=== PATIENT | female | born 1980 | race Caucasian/White ===

== ENCOUNTER 2020-02-23 09:19 | Emergency (ER) | payer OTHER ==
[~2020-02-23] VITALS: Ht 157.5 cm; Wt 99.8 kg
[~2020-02-23 09:19] MED LIST: CYMBALTA20 MG; CYMBALTA20 MG PO; LORAZEPAM0.5 MG PO; PRAZOSIN HCL2 MG PO; PROTONIX20 MG; SYNTHROID75 MCG PO; ZOLOFT100 MG PO
--- OUTSIDE RECORDS SUMMARY | 2020-02-23 09:22 | XMS ---
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 [facility] has no Care Guidelines for this patient. Ace VISIT COUNT (12 MO.) 1 REBEL Lozano TOTAL 1 NOTE: Visits indicate total known visits. ED/UCC VISIT TRACKING (12 MO.) 02/23/2020 09:19 REB[facility] TYPE: Emergency COMPLAINT: - ABD PAIN, NAUSEA INPATIENT VISIT TRACKING (12 MO.) No inpatient visits to display in this time frame [email or web address]
[2020-02-23] MEDS ORDERED: SUCRALFATE1 GM PO (09:51)
[2020-02-23] MEDS ORDERED: SIMVASTATIN20 MG PO (09:51)
[2020-02-23] MEDS ORDERED: LAMOTRIGINE25 MG PO (09:51)
[2020-02-23] MEDS ORDERED: TRAZODONE HCL100 MG PO (09:51)
[2020-02-23] MEDS ORDERED: NORCO 5-325 TA1 EACH PO (13:39)
== END 2020-02-23 13:47 | disposition home or self-care (01) ==
LOC: ED 09:19
DX: R10.31 Right lower quadrant pain (principal); G43.909 Migraine, unspecified, not intractable, without status migrainosus; Z88.1 Allergy status to other antibiotic agents; Z88.8 Allergy status to other drugs, medicaments and biological substances; Z79.899 Other long term (current) drug therapy
CPT/HCPCS: 74176; 76856; 80053; 81001; 83690; 83735; 84703; 85025; 87210; 96361; 96374; 96375; 99284-25; J1885; J2405; J7030